=== PATIENT | female | born 1995 ===

== ENCOUNTER 2019-06-26 19:49 | Emergency (ER) | payer SELFPAY ==
--- NOTE | 2019-06-26 20:56 | CT ---
CT FACIAL [facility]ONES 06/26/19 PROVIDED CLINICAL HISTORY: Injury. FINDINGS: The globes and other orbital contents appear normal. The paranasal sinuses are free of significant opacity. There is no evidence for fracture. IMPRESSION: No evidence for fracture. POS: [id number]
[2019-06-26] MEDS ORDERED: Fluorescein Opthalmic Strip ONE (21:26)
[2019-06-26] MEDS ORDERED: Proparacaine 0.5% Opth 15 ML BOT ONE (21:26)
== END 2019-06-26 22:31 | disposition home or self-care (01) ==
LOC: ERS 19:49
DX: S05.12XA Contusion of eyeball and orbital tissues, left eye, initial encounter (principal); H11.32 Conjunctival hemorrhage, left eye; Y04.0XXA Assault by unarmed brawl or fight, initial encounter
CPT/HCPCS: 70486